=== PATIENT | male | born 1950 | race Two or more races ===

== ENCOUNTER 2018-01-17 18:52 | Emergency (ER) | payer MEDICARE, OTHER ==
[~2018-01-17] VITALS: Ht 193 cm; Wt 93.0 kg
[2018-01-17] MEDS ORDERED: Morphine Sulfate 4mg/ml Inj IVP ONE ×2 (19:15→21:15)
--- NOTE | 2018-01-17 19:28 | Emergency Room Report ---
History of Present Illness General Chief Complaint: Back Pain-No Injury Source: Patient, EMS Present Illness HPI Patient presents with multiple complaints Initially main complaint was lower back pain however patient reports that he has pain Bilateral upper abdominal area Feels weak diffusely Patient reports that over the past 3 months he has been getting worked up for low back problems Also had imaging studies denies any vomiting or diarrhea Denies any focal weakness at this time Denies any neck pain or photophobia Allergies: Coded Allergies: No Known Allergies (Unverified , 01/17/18) Patient History Past Medical History: see triage record Pertinent Family History: none Reviewed Nursing Documentation: PMH: Agreed; PSxH: Agreed Nursing Documentation-PMH Past Medical History: No History, Except For Hx Hypertension: Yes Review of Systems All Other Systems: negative except mentioned in HPI Physical Exam Vital Signs Date Time Temp Pulse Resp B/P (MAP) Pulse Ox O2 Delivery O2 Flow Rate FiO2 01/17/18 18:46 98.1 84 18 112/90 98 Room Air 98.1 Sp02 EP Interpretation: reviewed, normal General Appearance: no apparent distress Head: normocephalic, atraumatic Eyes: bilateral eye PERRL, bilateral eye EOMI ENT: normal pharynx, no angioedema Neck: full range of motion, supple Respiratory: lungs clear, normal breath sounds Cardiovascular #1: regular rate, rhythm, no edema Gastrointestinal: non tender, soft Genitourinary: no CVA tenderness Musculoskeletal: normal inspection - Paraspinal discomfort [id number], no midline step-off, moving both lower extremities equally no focal weakness equal pvc monitor bilaterally Neurologic: alert, oriented x3, responsive, assistant service manager III-XII nml as tested, sensory intact Skin: normal color, no rash Lymphatic: no adenopathy Medical Decision Making Diagnostic Impression: Primary Impression: Compression fracture Additional Impressions: Lytic bone lesion of hip lytic lesions ER Course Given the patient's history and presentation multiple differentials considered patient had extensive blood work and imaging initiated CAT scan imaging is concerning for T9 and T5 compression fractures There are no signs of any retropulsion clinically again patient does not show any signs of focal deficit sensory is intact Patient's CT also shows concerning findings of significant amount of lytic lesions Patient was provided further pain medicine at this time requires further inpatient care given the insurance status patient was transferred for continued care Labs Test 01/17/18 19:20 White Blood Count 6.1 K/UL (4.8-10.8) Red Blood Count 3.22 M/UL (4.70-6.10) Hemoglobin 11.4 G/DL (14.2-18.0) Hematocrit 33.0 % (42.0-52.0) Mean Corpuscular Volume 102 FL (80-99) Mean Corpuscular Hemoglobin 35.3 PG (27.0-31.0) Mean Corpuscular Hemoglobin Concent 34.5 G/DL (32.0-36.0) Red Cell Distribution Width 12.2 % (11.6-14.8) Platelet Count 86 K/UL (150-450) Mean Platelet Volume 6.8 FL (6.5-10.1) Neutrophils (%) (Auto) % (45.0-75.0) Lymphocytes (%) (Auto) % (20.0-45.0) Monocytes (%) (Auto) % (1.0-10.0) Eosinophils (%) (Auto) % (0.0-3.0) Basophils (%) (Auto) % (0.0-2.0) Sodium Level 137 MMOL/L (136-145) Potassium Level 3.7 MMOL/L (3.5-5.1) Chloride Level 98 MMOL/L (98-107) Carbon Dioxide Level 27 MMOL/L (21-32) Anion Gap 12 mmol/L (5-15) Blood Urea Nitrogen 19 mg/dL (7-18) Creatinine 1.3 MG/DL (0.55-1.30) Estimat Glomerular Filtration Rate 55.1 mL/min (>60) Glucose Level 113 MG/DL (74-106) Calcium Level 12.6 MG/DL (8.5-10.1) Total Bilirubin 0.5 MG/DL (0.2-1.0) Aspartate Amino Transf (AST/SGOT) 28 U/L (15-37) Alanine Aminotransferase (ALT/SGPT) 48 U/L (12-78) Alkaline Phosphatase 66 U/L (46-116) Total Creatine Kinase 71 U/L (26-308) Creatine Kinase MB 0.7 NG/ML (0.0-3.6) Creatine Kinase MB Relative Index 0.9 Troponin I 0.000 ng/mL (0.000-0.056) Pro-B-Type Natriuretic Peptide 184 pg/mL (0-125) Total Protein 8.2 G/DL (6.4-8.2) Albumin 4.0 G/DL (3.4-5.0) Globulin 4.2 g/dL Albumin/Globulin Ratio 1.0 (1.0-2.7) Lipase 154 U/L (73-393) Rhythm Strip Diag. Results EP Interpretation: yes Rate: 74 Rhythm: NSR, no PVC's, no ectopy Chest X-Ray Diagnostic Results Chest X-Ray Diagnostic Results : Chest X-Ray Ordered: Yes # of Views/Limited/Complete: 1 View Indication: Chest Pain EP Interpretation: Yes Interpretation: no consolidation, no effusion, no pneumothorax Impression: No acute disease Electronically Signed by: Rose Mary Reece DO CT/MRI/US Diagnostic Results CT/MRI/US Diagnostic Results : Impression CT abdomen pelvis multiple lytic lesions diffusely, compression fracture at T9 T5 up to 75 and 50 no obvious retropulsion Last Vital Signs Date Time Temp Pulse Resp B/P (MAP) Pulse Ox O2 Delivery O2 Flow Rate FiO2 01/17/18 18:46 98.1 84 18 112/90 98 Room Air 98.1 Status: improved Disposition: XFER SHT-TRM HOSP Condition: Serious Rose Mary Reece DO January 17, 2018 19:28
[2018-01-17 19:35] VITALS: BP 140/88
[2018-01-17 20:06] LABS: HEMOGLOBIN 11.4 G/DL (14.2-18.0); MEAN CORPUSCULAR VOLUME 102 FL (80-99); PLATELET COUNT 86 K/UL (150-450); RED BLOOD COUNT 3.22 M/UL (4.70-6.10); RED CELL DISTRIBUTION WIDTH 12.2 % (11.6-14.8); WHITE BLOOD COUNT 6.1 K/UL (4.8-10.8)
[2018-01-17 20:11] LABS: ANION GAP 12 mmol/L (5-15); BLOOD UREA NITROGEN 19 mg/dL (7-18); CALCIUM 12.6 MG/DL (8.5-10.1); CARBON DIOXIDE 27 MMOL/L (21-32); CHLORIDE 98 MMOL/L (98-107); CREATININE 1.3 MG/DL (0.55-1.30); POTASSIUM 3.7 MMOL/L (3.5-5.1); SODIUM 137 MMOL/L (136-145)
[2018-01-17 20:25] VITALS: BP 136/82
[2018-01-17 20:25] LABS: ALANINE AMINOTRANSFERASE 48 U/L (12-78); ALKALINE PHOSPHATASE 66 U/L (46-116); ASPARTATE AMINO TRANSFERASE 28 U/L (15-37); BILIRUBIN,TOTAL 0.5 MG/DL (0.2-1.0); CKMB 0.7 NG/ML (0.0-3.6); CREATINE KINASE 71 U/L (26-308)
[2018-01-17 21:25] VITALS: BP 135/80
[2018-01-17 22:25] VITALS: BP 122/74
[2018-01-17 23:01] VITALS: BP 122/74
--- NOTE | 2018-01-19 11:51 | Cardiology Report ---
APPROVED REPORT EKG Measurement Heart [id number] Sinus rhythm with marked sinus arrhythmia Otherwise normal ECG
== END 2018-01-17 23:00 | disposition short-term general hospital (02) ==
LOC: EDBD 18:52 → EMR 19:49
DX: M48.54XA Collapsed vertebra, not elsewhere classified, thoracic region, initial encounter for fracture (principal); M89.9 Disorder of bone, unspecified; I10 Essential (primary) hypertension
CPT/HCPCS: 36415; 71045; 74177; 80053; 82550; 82553; 83690; 83880; 84484; 85007; 85025; 93005; 99285; J2270; J2405; Q9967

== ENCOUNTER 2020-06-08 01:30 | Emergency (ER) | payer MEDICARE, OTHER ==
[2020-06-08] VITALS (7 sets, daily range): BP systolic 85–114; BP diastolic 57–77
[~2020-06-08] VITALS: Ht 182.9 cm; Wt 52.6 kg
--- NOTE | 2020-06-08 01:40 | NUR ---
ED Nurse Note: Patient brought into ED by PITO ALEJANDRO [id number] from home for c/o constant abdominal and back pain that is chronic for him, but became worse tonight. Patient has hx of kidney issues. Patient is aaox4, breathing is normal and unlabored. Patient connected to athletic monitor. Safety measures met; will continue to monitor.
--- NOTE | 2020-06-08 01:44 | NUR ---
ED Nurse Note: JOSHUA Adame speaking with patient bedside regarding patient leaving AMA.
[2020-06-08] MEDS ORDERED: Piperacillin/Tazobactam 4.5 GM in NS 110 ML IV ONE (01:45)
[2020-06-08] MEDS ORDERED: Vancomycin 750 MG in NS 275 ML IVPB ONE (01:45)
--- NOTE | 2020-06-08 01:55 | NUR ---
ED Nurse Note: Patient agreed to stay at hospital after considering leaving AMA. He agrees with treatment plan at this time.
--- NOTE | 2020-06-08 02:20 | NUR ---
ED Nurse Note: JOSHUA is aware of patient BP. IV fluids are infusing at this time. Patient is awake and alert, not feeling lightheaded or dizzy at this time.
[2020-06-08 02:29] LABS: HEMATOCRIT 30.1 % (42.0-52.0); HEMOGLOBIN 10.3 G/DL (14.2-18.0); MEAN CORPUSCULAR VOLUME 93 FL (80-99); PLATELET COUNT 87 K/UL (150-450); RED BLOOD COUNT 3.22 M/UL (4.70-6.10); RED CELL DISTRIBUTION WIDTH 14.7 % (11.6-14.8); WHITE BLOOD COUNT 6.9 K/UL (4.8-10.8)
--- NOTE | 2020-06-08 02:36 | Emergency Room Report ---
History of Present Illness General Chief Complaint: Pain Source: Patient Present Illness HPI 69-year-old male with history of multiple myeloma on chemotherapy (last chemo yesterday at [place]), obstructive uropathy status post right renal stent, history of kidney stones presents by ambulance with complaint of diffuse abdominal pain. States he was seen at [place] recently and told he has an obstructing renal stone that "needs surgery". He has been complaining of fatigue and generalized malaise. Denies hematuria, melena, hematochezia, cough, chest pain, shortness of breath, nausea, vomiting, focal weakness, fever, neck pain, rash or other symptoms. The patient's symptoms were gradual onset, severity was moderate, duration since several days. Quality: Aching Past medical history: Multiple myeloma, obstructive uropathy Past surgical history: Right renal stent Smoking: Denies Alcohol use: Denies Drug use: Denies Review of systems: CONST: No fevers or chills, No night sweats PULMONARY: No productive cough, No shortness of breath CARDIAC: No chest pain, No palpitations GI: No vomiting, No diarrhea , No melena_or_BRBPR : No dysuria, No hematuria, No discharge NEURO: No new_focal_weakness_or_numbness, No confusion, No vision changes 14 point Review of Systems is otherwise negative except per HPI Physical Exam: GENERAL: Awake_alert_ nontoxic, no acute distress Spo2 97% on RA -normal EYES: Extraocular muscles are intact. Conjunctivae clear. Lids without swelling ENT: External nose and ear normal_in_appearance. Oropharynx clear. Head_a traumatic, Moist_oral_mucosa NECK: No JVD. No meningismus. No thyromegaly. Supple. Trachea midline RESP: Normal respiratory effort. Symmetric rise. No stridor. Clear_to_auscultation_No_rales_No_wheezes CARDIAC: Regular rate and regular rhytm. No_significant pedal edema. ABDOMEN: Soft. Nondistended. Nontender_No_rebound_or_guarding. MSK: Normal muscle tone, without rigidity. Extremities without asymmetric deformity or swelling. SKIN: Warm and dry. No visible cyanosis or pallor NEUROLOGIC: Alert, oriented x3. Motor_and_sensation_grossly_intact. No truncal ataxia. Gait_normal Psych: Normal mood and affect, normal judgment and insight - COORDINATION OF CARE Case was discussed with: Patient , Patient's Physician Any labs and imaging that were ordered were interpreted as part of the medical decision making: Medical Decision Making/Plan: Differential diagnosis includes sepsis / severe sepsis /septic shock , cellulitis UTI, pneumonia , viral syndrome, gastroenteritis, emergent abdominal infection, among others. Vitals show critical hypotension with systolic blood pressure 80 mmHg. Map is greater than 75. No compensatory tachycardia or fever. Patient abdomen is benign. Labs show DIEGO. Creatinine is 2.0. BNP is elevated at 2338. He is also hyponatremic. Overall looks cachectic. Calcium is also elevated at 10.4, likely 2/2 malignancy. Should resolve with IV fluids. Troponin is negative CXR shows hazy right lower lobe opacity. COVID swab negative CT scan of the abdomen shows R renal stent and R pulmonary mass. Possible R pyelo. Sepsis bundle initiated on arrival. Blood cultures, lactate drawn. Lactate was not elevated, patient refused 30 cc/kg IV fluids by bolus when he was told his BNP was high and iv fluids might make him worse. Patient was fluid responsive to 1 L of IV fluids. Repeat blood pressure was 101/68. Map of 75. Empiric antibiotics were started. Patient will be admitted to the hospital for further care and evaluation. The patient has been stabilized to the best of this emergency department's capabilities. Given the patient's medical needs, appropriate facilities for transfer were discussed and the decision has been made to transfer this patient to to [place]. The receiving facility has the capacity and capabilities to provide care for the patient. I spoke with Dr Mojica who accepted the patient in transfer. The patient has been informed and updated of their current clinical status. The patient has given verbal consent for the transfer. The risks and benefits were explained and the patient verbalizes their understanding. Authorization #[id number] Patient accepted to [facility] - CRITICAL CARE STATEMENT - Critical care performed 45 minutes Time is exclusive of separately billable procedures. Time includes: direct patient care, patient reassessment, coordination of patient care, review of patient's medical records, medical consultation, family consultation regarding treatment decisions and documentation of patient care. Organ systems at risk: Cardiac / Circulatory /pulmonary Allergies: Coded Allergies: No Known Allergies (Unverified , 01/17/18) COVID-19 Screening Contact w/high risk pt: No Experienced COVID-19 symptoms?: No COVID-19 Testing performed PEDAL ASSEMBLER: No Nursing Documentation-PMH Hx Hypertension: Yes Physical Exam Vital Signs Date Time Temp Pulse Resp B/P (MAP) Pulse Ox O2 Delivery O2 Flow Rate FiO2 06/08/20 01:31 98.1 78 20 100/60 (73) 92 Room Air Sp02 EP Interpretation: reviewed, normal Procedures Critical Care Time Critical Care Time Critical Care Statement Organ systems at risk include: Cardiac circulatory Critical care performed for 45 minutes. Time is exclusive of separately billable procedures. Time includes: direct patient care, continuous monitoring and multiple patient reassessment, coordination of patient care, review of patient's medical records, medical consultation, family consultation regarding treatment decisions and documentation of patient care. Medical Decision Making Diagnostic Impression: Primary Impression: Abdominal pain Additional Impressions: Multiple myeloma Hypotension Pneumonia Hyponatremia DIEGO (acute kidney injury) CHF (congestive heart failure) Thrombocytopenia Pulmonary mass History of renal stent EKG Diagnostic Results MIKA Calvinibskyler Da Silva 12-lead EKG (interpreted by me) Time: 0209 Indication: Rhythm analysis Tracing visualized and Interpreted by me. Rhythm: Normal sinus rhythm Rate: 98 bpm QTc: 416 Morphology: No_significant_ST_elevations_or_depressions, No STEMI Impression: Normal_sinus_rhythm_without_significant_abnormality Q waves V1 V2. Rhythm Strip Diag. Results Rhythm Strip Time: 02:35 EP Interpretation: yes Rate: 64 Rhythm: NSR, no PVC's, no ectopy Chest X-Ray Diagnostic Results Chest X-Ray Diagnostic Results : MIKA Scribskyler Da Silva Chest X-Ray: Views: 1 view(s) Indication: Possible sepsis Findings: Normal heart size. Mediastinum normal. Patchy infiltrate Impression: Right-sided infiltrate, tortuous aorta. No pleural effusion The X-ray(s) were independently viewed and interpreted contemporaneously Electronically signed by Mónica post DO Reevaluation Time: 02:36 Last Vital Signs Date Time Temp Pulse Resp B/P (MAP) Pulse Ox O2 Delivery O2 Flow Rate FiO2 06/08/20 02:15 98.1 89 20 87/64 100 Room Air Status: improved Disposition: ADMITTED INPATIENT - [facility] Admit Decision Time: 02:36 Condition: Stable Referrals: NOT CHOSEN IPA/,REFERRING (PCP) Mónica Adame D.O. Jun 08, 2020 02:36
[2020-06-08 02:41] LABS: CALCIUM 10.4 MG/DL (8.5-10.1); POTASSIUM 4.8 MMOL/L (3.5-5.1)
[2020-06-08 02:54] LABS: ALBUMIN 3.6 G/DL (3.4-5.0); ALBUMIN/GLOBULIN RATIO 1.2 (1.0-2.7); BILIRUBIN,TOTAL 0.3 MG/DL (0.2-1.0); CKMB 0.5 NG/ML (0.0-3.6); PHOSPHORUS 4.3 MG/DL (2.5-4.9)
--- NOTE | 2020-06-08 03:30 | NUR ---
ED Nurse Note: Patient is awake and alert, resting in bed. Monitoring patient BP, no pain medication given due to BP. Patient is not complaining. Vital signs are stable. Patient unable to provide urine sample, refused straight cath. Will continue to monitor.
--- NOTE | 2020-06-08 04:30 | NUR ---
ED Nurse Note: Patient still c/o 03/25 ab/back pain. ERMD notified. Will carry out medication order. RN continuously monitoring BP.
[2020-06-08] MEDS ORDERED: fentaNYL 100 mcg/2 mL IV ONE (04:45)
--- NOTE | 2020-06-08 05:00 | NUR ---
ED Nurse Note: Patient taken to CT.
--- NOTE | 2020-06-08 05:45 | NUR ---
ED Nurse Note: Patient BP is 85/57 MAP 64 at this time. ERMD notified. Patient is asymptomatic, aaox4, no complaints. Will administer fluids.
--- NOTE | 2020-06-08 06:05 | NUR ---
ED Nurse Note: Patient is in trendelenburg position. ERMD is aware of patient BP. No further intervention neccessary as long as MAP is 2 below or above 65 per ERMD Adame.
--- NOTE | 2020-06-08 06:31 | Diagnostic Imaging Report ---
EXAM: CT Abdomen and Pelvis Without Intravenous Contrast CLINICAL HISTORY: PAIN TECHNIQUE: Axial computed tomography images of the abdomen and pelvis without intravenous contrast. CTDI is 4.3 mGy and DLP is 192 mGy-cm. One or more of the following dose reduction techniques were used: automated exposure control, adjustment of the mA and/or kV according to patient size, use of iterative reconstruction technique. COMPARISON: 01/17/2018 FINDINGS: Lung bases: There is been interval development of a right pleural effusion, at least moderate in size. The study is limited without intravenous contrast. In addition, it is noted that the axial images start below the level of the dome of the diaphragm. However, the sagittal and coronal images of the abdomen also include the lower half of the thorax. 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 It involves the chest wall, with destruction of the right seventh rib and extends into the lung parenchyma. It is difficult to delineate from adjacent pleural effusion but measures at least 6.8 x 6.8 x 6.1 cm and is highly suspicious for a malignancy. ABDOMEN: Liver: Visualized portion of the unenhanced liver is unremarkable. Gallbladder and bile ducts: Unremarkable. No calcified stones. No ductal dilation. Pancreas: Unremarkable. No ductal dilation. Spleen: There is borderline splenomegaly. It has increased in size compared to the previous study. It currently measures 11.0 cm in length, compared to 8.5 cm previously. There is no focal splenic lesion. Adrenals: Unremarkable. No mass. Kidneys and ureters: A right ureteral stent is in place. There is a hypodense lesion in the upper pole of the right kidney, stable compared to the previous study, likely representing a renal cyst. There is mild perinephric stranding at the posterior lateral aspect of the lower pole right kidney. This could be related to previous hydronephrosis given the presence of the right ureteral stent. There is no current dilatation of the right renal collecting system or ureter. There has been interval increase in degree of left renal atrophy. Again noted is focal parenchymal scarring at the lower pole. There are dystrophic appearing calcifications at the lower pole left kidney. The left ureter is normal as seen. Stomach and bowel: Diverticulosis, without evidence of diverticulitis. No obstruction. PELVIS: Appendix: Normal appendix. Bladder: Unremarkable. No stones. Reproductive: There is stable mild enlargement of the prostate gland. ABDOMEN and PELVIS: Intraperitoneal space: Unremarkable. No free air. No significant fluid collection. Bones/joints: There is diffuse osteopenia with innumerable lucencies throughout the visualized osseous structures, particularly the spine, increased compared to the previous exam. There has also been interval increase in degree of compression of several thoracic vertebral bodies, particularly T8-10 and T12. No dislocation. Soft tissues: Unremarkable. Vasculature: Unremarkable. No abdominal aortic aneurysm. Lymph nodes: Unremarkable. No enlarged lymph nodes. IMPRESSION: 1. 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 If not recently performed, CT scan of the chest is recommended for more complete evaluation. 2. Interval increase in osteopenia and innumerable lucencies throughout the osseous structures, particularly the spine-this could be due to multiple myeloma or metastatic disease. There has been interval progression of compression fractures of the spine as described, these are of indeterminate age. 3. A right ureteral stent is noted, without evidence of right hydronephrosis. Mild right perinephric stranding could be chronic- related to previous hydronephrosis. However, if there is any clinical concern for infection, right pyelonephritis cannot be excluded.
--- NOTE | 2020-06-08 06:33 | NUR ---
ED Nurse Note: BP is 93/62 with MAP of 69 at this time.
--- NOTE | 2020-06-08 06:53 | NUR ---
ED Nurse Note: Patient able to use urinal bedside. Urine sample sent to lab.
--- NOTE | 2020-06-08 07:00 | NUR ---
HAND-OFF: Report given to EMMA Elizabeth.
[2020-06-08 07:04] LABS: APPEARANCE,URINE CLEAR; BILIRUBIN, URINE NEGATIVE (NEGATIVE); COLOR,URINE PALE YELLOW; GLUCOSE, URINE (UA) NEGATIVE (NEGATIVE); KETONES,URINE NEGATIVE (NEGATIVE); LEUKOCYTE ESTERASE ,URINE 2+ (NEGATIVE); NITRITE,URINE NEGATIVE (NEGATIVE); PH,URINE 5 (4.5-8.0); PROTEIN,URINE 3+ (NEGATIVE); UROBILINOGEN,URINE NORMAL MG/DL (0.0-1.0)
--- NOTE | 2020-06-08 07:04 | NUR ---
ED Nurse Note: Report received by EMMA [place]. Pt wheeled back to bed from restroom, pt in stable condition, no signs of distress, denies pain. Breathing even and unlabored. Vital signs stable as documented.
--- NOTE | 2020-06-08 07:13 | NUR ---
ED Nurse Note: Spoke with Gregor at [facility] ambulance is scheduled for transfer at 0800.
--- NOTE | 2020-06-08 07:50 | NUR ---
ED Nurse Note: Report given to EMMA Burton at [facility].
--- NOTE | 2020-06-08 08:08 | NUR ---
ED Nurse Note: Report given to ambulance personnel TAHMINA Head. Pt was transfered via gurney, pt took all belongings.
--- NOTE | 2020-06-08 10:42 | Diagnostic Imaging Report ---
Procedure: XRAY Chest 1v Reason for study: Shortness of breath Comparison films: 01/17/2018. FINDINGS: Radiograph is rotated. Vascularity is normal. There are bilateral perihilar infiltrates. Cardiac and mediastinal silhouette are within normal limits. CP angles are sharp. Tortuous aorta unchanged. IMPRESSION: Bilateral perihilar infiltrates.
--- NOTE | 2020-06-10 14:39 | Cardiology Report ---
APPROVED REPORT EKG Measurement Heart [id number] <Conclusion> Poor data quality, interpretation may be adversely affected Normal sinus rhythm Cannot rule out Anterior infarct, age undetermined Abnormal ECG
== END 2020-06-08 08:08 | disposition short-term general hospital (02) ==
LOC: EDBD 01:30 → EMR 01:54
DX: R10.9 Unspecified abdominal pain (principal); C90.00 Multiple myeloma not having achieved remission; I95.9 Hypotension, unspecified; J18.9 Pneumonia, unspecified organism; E87.6 Hypokalemia; N17.9 Acute kidney failure, unspecified; I51.9 Heart disease, unspecified; D69.6 Thrombocytopenia, unspecified; J98.4 Other disorders of lung; E87.1 Hypo-osmolality and hyponatremia; I11.0 Hypertensive heart disease with heart failure; M85.80 Other specified disorders of bone density and structure, unspecified site; K57.90 Diverticulosis of intestine, part unspecified, without perforation or abscess without bleeding
CPT/HCPCS: 36415; 71045; 74176; 80053; 80307; 81003; 82553; 83605; 83690; 83735; 83880; 84100; 84484; 85025; 85610; 85730; 87040; 93005; 96365; 96368; 96375; 99284; J2543; J3010; J3370; J7030; J7050; U0002